=== PATIENT | female | born 1985 | race Caucasian/White ===

== ENCOUNTER 2021-05-24 11:54 | Emergency (ER) | payer OTHER, SELFPAY ==
--- NOTE | ~2021-05-24 | CT_ITS ---
EXAMINATION: CT soft tissue neck w con DATE: 05/24/2021 13:51 INDICATION: Throat pain, submental swelling. Intermittent fevers. TECHNIQUE: Computed tomography (CT) of the neck was performed with 75 mL Omnipaque-350 intravenous co ntrast. Automated exposure control and iterative reconstruction technique were employed. Exam dose: 534.87 mGy-cm total exam DLP. COMPARISON: None FINDINGS: There is bilateral swelling of the tonsillar pillars suggesting bilateral tonsillitis. The submandibular and parotid glands appear normal. Normal size and homogeneous enhancement of the th yroid gland. Moderate prominence of the posterior triangle lymph nodes bilaterally, likely reactive. No occlusion, ulceration, dissection or significant stenosis of the cervical carotid arteries. No sup erior mediastinal lymphadenopathy. Mild prominence of the prevascular lymph nodes. Normal caliber of the thoracic aortic arch. Upper included lung zones are clear. Reversal cervical curvature which may be due to positioning. No prevertebral soft tissue swelling or emphysema. Normal size of the epiglottis. No tracheal air column narrowing. IMPRESSION: Prominence of the bilateral tonsillar pillar suggesting bilateral tonsillitis, with prob able moderate bilateral posterior triangle cervical lymph node prominence Reviewed, dictated and finalized at [facility]. Reviewed, dictated and finalized at [facility]. IMPRESSION: Prominence of the bilateral tonsillar pillar suggesting bilateral tonsillitis, with probable moderate bilateral posterior triangle cervical lymph node prominence
[2021-05-24 12:00] VITALS: BP 125/79; PULSE 102; RESP 17; TEMP 36.4; O2SAT 100
--- NOTE | 2021-05-24 12:17 | ED.GENADULT ---
HPI - General Adult General Chief complaint: Unspecified Stated complaint: throat swelling, headache Time Seen by Provider: 05/24/21 12:04 Source: RN notes reviewed History of Present Illness HPI narrative: Patient presents to emergency room from home for sore throat. Patient states symptoms began 2 days ago states throat pain is progressively worsening she is able to swallow but it hurts to talk and to swallow. She also notes pain in bilateral ears and intermittent headaches. States she is not taking medication for the symptoms today she denies any fevers or chills cough abdominal pain nausea vomiting or any other symptoms Related Data Home Medications Medication Instructions Recorded Confirmed buspirone mg 05/24/21 05/24/21 venlafaxine mg PO 05/24/21 Allergies Allergy/AdvReac Type Severity Reaction Status Date / Time No Known Allergies Allergy Verified 05/24/21 12:02 Review of Systems Review of Systems: Gen.: Denies fevers or chills Eyes: Denies eye pain or visual change ENT: See HPI Respiratory: Denies shortness of breath or cough CV: Denies chest pain or palpitations GI: Denies abdominal pain nausea, emesis or diarrhea denies chance of Musculoskeletal: Denies back pain or muscle pain Neuro: Reports intermittent headache Skin: Denies rash Except as documented, all other systems reviewed and negative FOR[facility] Past Medical History Medical History (Updated 05/24/21 @ 16:40 by Rui Springer DO) Patient denies significant medical history Social History Social History Smoking status: Current every day smoker Exam Narrative: APPEARANCE: No acute distress, nontoxic, resting in bed EYES: EOMI HEENT: Normocephalic, atraumatic, TMs clear bilaterally, nares patent nares patent, erythema the posterior pharynx bilateral tonsils, tonsils 4+, uvula midline, no trismus, exudate over the bilateral tonsils, tolerating own secretions RESPIRATORY: No respiratory distress Clear to auscultation bilaterally with no rhonchi wheezing or rales. CARDIOVASCULAR: Regular rate and rhythm without murmurs rubs or gallops. ABDOMINAL: Soft, nontender, nondistended, no rebound or guarding MUSCULOSKELETAl: Moves all extremities. No clubbing, cyanosis or edema. NEURO: Awake and alert. Following commands, speech normal, no focal deficits SKIN:: Warm, dry. No rashes lesions or abrasions PSYCHIATRIC: Normal affect/mood, Course Course Emergency Course: Discussed with Dr. Nj presentation work-up agrees with plan for discharge request patient be discharged on Augmentin as well as a Medrol Dosepak with follow-up as an outpatient Patient states she is feeling much better at this time Discussed with patient results of workup and diagnosis. Discussed need for follow-up with primary care, proper use of medication, and reasons to return to the emergency department. Patient understands and agrees to current treatment plan Vital Signs Vital signs: Vital Signs Temperature 97.6 F 05/24/21 12:00 Pulse Rate 102 H 05/24/21 12:00 Respiratory Rate 17 05/24/21 12:00 Blood Pressure 125/79 05/24/21 12:00 Pulse Oximetry 100 05/24/21 12:00 Temperature 97.6 F 05/24/21 12:00 Pulse Rate 72 05/24/21 15:02 Respiratory Rate 18 05/24/21 15:02 Blood Pressure 101/69 05/24/21 15:02 Pulse Oximetry 97 05/24/21 15:02 Medical Decision Making Vital Signs Vital Signs: Vital Signs Temperature 97.6 F 05/24/21 12:00 Pulse Rate 102 H 05/24/21 12:00 Respiratory Rate 17 05/24/21 12:00 Blood Pressure 125/79 05/24/21 12:00 Pulse Oximetry 100 05/24/21 12:00 Temperature 97.6 F 05/24/21 12:00 Pulse Rate 72 05/24/21 15:02 Respiratory Rate 18 05/24/21 15:02 Blood Pressure 101/69 05/24/21 15:02 Pulse Oximetry 97 05/24/21 15:02 Lab Data Result diagrams: 05/24/21 12:30 05/24/21 12:30 Labs: Lab Results
[2021-05-24] MEDS: KETOROLAC 30 MG/ML VIAL (*BKC) IV PUSH (12:31)
[2021-05-24] MEDS: SODIUM CHLORIDE 0.9% IV 1,000 ML 999 ML IV CONT ×2 (12:31→15:02)
[2021-05-24 12:45] LABS: Basophils Absolute Auto 0.1 K/mm3 (0.0-0.1); Basophils Percent Auto 0.4 % (0.2-1.2); Eosinophils Absolute Auto 0.1 K/mm3 (0-0.3); Eosinophils Percent Auto 0.3 % (0-4.4); Hematocrit 43.8 % (37.0-47.0); Hemoglobin 14.8 g/dL (12.0-15.0); Immature Granulocyte Absolute 0.13 K/mm3 (0.00-0.031); Immature Granulocyte Percent A 0.6 % (0-0.5); Lymphocytes Percent Auto 8.8 % (18.3-44.2); Mean Corpuscular HGB Conc 33.8 g/dl (32-36); Mean Corpuscular Hemoglobin 29.9 pg (26-34); Mean Corpuscular Volume 88.5 fl (80-100); Mean Platelet Volume 8.2 fl (7.4-10.4); Monocytes Absolute Auto 1.6 K/mm3 (0.1-0.6); Monocytes Percent Auto 7.4 % (2.6-8.5); Neutrophils Absolute Auto 17.9 K/mm3 (1.3-6.7); Neutrophils Percent Auto 82.5 % (45.5-73.1); Platelet Count Result 351 k/mm3 (150-375); Red Blood Count 4.95 M/mm3 (4.2-5.4); Red Cell Distribution Width 12.2 % (11.5-14.5); White Blood Count 21.7 K/mm3 (4.5-10.0)
[2021-05-24 12:56] LABS: Alanine Aminotransferase 52 U/L (4-35); Alkaline Phosphatase 111 U/L (38-126); Anion Gap 8 mmol/L (8-16); Aspartate Amino Transferase 36 U/L (14-36); Bilirubin,Total 0.3 mg/dL (0.2-1.3); Blood Urea Nitrogen 10 mg/dL (7-17); Calcium 8.5 mg/dL (8.4-10.2); Carbon Dioxide 23 mmol/L (22-30); Chloride 104 mmol/L (98-107); Estimated CRCL calculation 95 ml/min; Estimated Glomerular Filt Rate > 60; Glucose 110 mg/dL (65-110); Potassium 3.9 mmol/L (3.4-5.0); Sodium 135 mmol/L (137-145)
[2021-05-24 13:03] LABS: Monoscreen Negative (Negative); Negative Monotest Control Negative (Negative); Positive Monotest Control Positive (Positive)
--- NOTE | 2021-05-24 13:40 | PC.NURSE ---
Pt in CT scan at this time
[2021-05-24 15:02] VITALS: BP 101/69; PULSE 72; RESP 18; O2SAT 97
[2021-05-24] MEDS: AMPICILLIN SULB 3 GM/NS 100 ML 3 GM/100 ML VIAL IVPB (16:43)
[2021-05-24 17:04] VITALS: BP 107/67; PULSE 78; RESP 18; O2SAT 100
== END 2021-05-24 17:08 | disposition home or self-care (01) ==
PROVIDERS: Emergency Provider Emergency Medicine
DX: J03.90 Acute tonsillitis, unspecified (principal); F17.200 Nicotine dependence, unspecified, uncomplicated
CPT/HCPCS: 36415; 70491; 80053; 81025; 85025; 86308; 87081; 87804; 87880; 96361; 96365; 96375; 99284; J0295; J1100; J1885; J7030; Q9967

== ENCOUNTER 2021-10-09 09:14 | Outpatient (CLI) | payer OTHER, SELFPAY ==
--- NOTE | ~2021-10-09 | MMUS_ITS ---
EXAMINATION: MM diagnostic jacob BI w keyona, US breast BI complete HISTORY: Palpable breast lumps. TECHNIQUE: Additional 3-D tomosynthesis images of the breasts were performed and synthetic 2-D images were generated. CAD analysis was submitted and interpreted. High resolution bilateral complete breas t ultrasound was performed. COMPARISON: None BREAST PARENCHYMAL COMPOSITION: The breasts are extremely dense, which lowers the sensitivity of mamm ography FINDINGS: MAMMOGRAPHIC FINDINGS: The breasts are symmetric. No discrete masses, calcifications or architectural distortion are identif ied in either breast to suggest malignancy. ULTRASOUND: Complete bilateral US of all 4 quadrants of the breasts and retroareolar region was reviewed. There a re multiple bilateral breast cysts throughout both breasts. There are normal-appearing bilateral axil es lymph nodes. No suspicious masses to suggest malignancy. IMPRESSION: 1. No evidence for malignancy in either breast. Benign findings. 2. Routine yearly screening mammogram and regular clinical breast examination are recommended. BI-RADS Category 2: Benign finding(s). Reviewed, dictated and finalized at [facility]. IMPRESSION: 1. No evidence for malignancy in either breast. Benign findings. 2. Routine yearly screening mammogram and regular clinical breast examination a re recommended. BI-RADS Category 2: Benign finding(s).
== END 2021-10-09 09:15 | disposition home or self-care (01) ==
LOC: CHSIMG 09:16
PROVIDERS: PCP Physician Assistant; Visit Provider Physician Assistant
DX: N63.24 Unspecified lump in the left breast, lower inner quadrant (principal)
CPT/HCPCS: 76641; 77062; 77066; G0279